=== PATIENT | male | born 1990 | race Hispanic/Latino ===

== ENCOUNTER 2021-05-26 21:38 | Emergency (ER) | payer OTHER ==
[~2021-05-26] VITALS: Ht 167.6 cm; Wt 81.6 kg
[2021-05-26 21:43] VITALS: BP 149/82
[2021-05-26] MEDS ORDERED: TETRACAINE HCL 0.5% 4 ML OPHTH SOLN OP SCH (22:30)
[2021-05-26] MEDS ORDERED: FLUORESCEIN SODIUM 1 STRIP STRIP OP SCH (22:30)
[2021-05-26] MEDS ORDERED: ERYTHROMYCIN BASE 0.5% OPHTH OINT 1 GM TUBE OU SCH (23:00)
[2021-05-26] MEDS ORDERED: ERYT1OIN7 OP (23:02)
[2021-05-26] MEDS ORDERED: ERYTHROMYCIN BASE 0.5% OPHTH OINT 1 GM TUBE ONE (23:03)
== END 2021-05-26 23:07 | disposition home or self-care (01) ==
LOC: EDH 21:38
DX: T15.92XA Foreign body on external eye, part unspecified, left eye, initial encounter (principal); Z88.1 Allergy status to other antibiotic agents; X58.XXXA Exposure to other specified factors, initial encounter; Y93.89 Activity, other specified; Y92.89 Other specified places as the place of occurrence of the external cause; Y99.8 Other external cause status
CPT/HCPCS: 65205

== ENCOUNTER 2023-05-10 13:16 | Emergency (ER) | payer OTHER ==
[~2023-05-10] VITALS: Ht 170.2 cm; Wt 81.6 kg
[~2023-05-10 13:16] MED LIST: ERYT1OIN7 OP
[2023-05-10 13:42] VITALS: BP 128/71; PULSE 69; RESP 18
== END 2023-05-10 16:50 | disposition left against medical advice (07) ==
LOC: EDH 13:16
DX: T78.49XA Other allergy, initial encounter (principal); Z53.21 Procedure and treatment not carried out due to patient leaving prior to being seen by health care provider; X58.XXXA Exposure to other specified factors, initial encounter
CPT/HCPCS: 99281